=== PATIENT | female | born 2000 | race Caucasian/White ===

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

== ENCOUNTER 2018-03-10 22:44 | Emergency (ER) | payer SELFPAY ==
[~2018-03-10] VITALS: Ht 162.6 cm; Wt 57.3 kg
[2018-03-10 22:49] VITALS: TEMP 98.1
[2018-03-11] MEDS ORDERED: LEXAPRO20 MG PO (00:03)
[2018-03-11] MEDS ORDERED: RECLIPSEN 0.151 TAB PO (00:03)
[2018-03-11] MEDS ORDERED: ABILIFY 10MG TA10 MG PO (00:03)
[2018-03-11 00:05] LABS: BASO % 0.5 % (0.0-2.0); EOS # 0.2 (0.0-0.7); GRAN # 4.6 (1.4-6.5); GRAN % 60.1 % (42.2-75.2); HEMATOCRIT 33.8 % (35.0-45.0); HEMOGLOBIN 11.2 g/dl (12.0-15.0); LYMPH # 2.4 (1.2-3.4); MEAN CELL VOLUME 89 fl (80.0-95.0); MEAN CORPUSCULAR HEMOGLOBIN 30 pg (26.0-32.0); MEAN CORPUSCULAR HGB CONC 33 g/dl (33.0-37.0); MEAN PLATELET VOLUME 11.8 fl (7.4-10.4); MONO # 0.5 (0.1-0.6); MONO % 6.1 % (1.7-9.3); PLATELET COUNT 205 K/mm3 (130-400); RED BLOOD COUNT 3.78 M/mm3 (4.10-5.30); REDCELL DISTRIBUTION WIDTH-CV 13.3 % (11.5-14.5)
[2018-03-11 00:18] LABS: ALBUMIN 4.2 gm/dL (3.5-5.0); BILIRUBIN,TOTAL 0.4 mg/dL (0.0-1.0); CALCIUM 9.2 mg/dL (8.4-10.2); CREATININE, serum 0.81 mg/dL (0.52-1.25); POTASSIUM 3.8 mmol/L (3.4-5.0); TOTAL PROTEIN 7.9 gm/dL (6.4-8.2)
[2018-03-11 01:46] LABS: COLLECTION METHOD CLEAN CATCH
[2018-03-11 01:52] LABS: PH 7 (5-8); SQUAMOUS EPITHELIAL 0-2 /hpf; URINE APPEARANCE Clear; URINE BACTERIA Rare /hpf; URINE BILIRUBIN Negative (NEGATIVE); URINE BLOOD Negative (NEGATIVE); URINE COLOR Straw; URINE GLUCOSE Negative (NEGATIVE); URINE KETONE Negative (NEGATIVE); URINE LEUKOCYTE ESTERASE Negative (NEGATIVE); URINE NITRATE Negative (NEGATIVE); URINE PROTEIN(semi-quant) Negative (NEGATIVE); URINE RBC 0-2 /hpf; URINE UROBILINOGEN Negative (NEGATIVE)
[2018-03-11 02:35] VITALS: BP 116/64; PULSE 72
== END 2018-03-11 02:35 | disposition home or self-care (01) ==
LOC: COL.ER 22:44
PROVIDERS: Emergency Medicine
DX: R11.10 Vomiting, unspecified (principal); Z90.49 Acquired absence of other specified parts of digestive tract; Z32.02 Encounter for pregnancy test, result negative
CPT/HCPCS: J2765; J7120

== ENCOUNTER 2018-03-17 18:21 | Emergency (ER) | payer SELFPAY ==
[~2018-03-17] VITALS: Ht 162.6 cm; Wt 56.2 kg
[~2018-03-17 18:21] MED LIST changes: +ABILIFY 10MG TA10 MG PO; +LEXAPRO20 MG PO; +RECLIPSEN 0.151 TAB PO
[2018-03-17 18:28] VITALS: TEMP 98.2
[2018-03-17 19:01] LABS: BASO # 0.1 (0.0-0.2); BASO % 0.5 % (0.0-2.0); EOS # 0.1 (0.0-0.7); EOS % 0.9 % (0-4.0); GRAN # 6.8 (1.4-6.5); GRAN % 72.8 % (42.2-75.2); HEMATOCRIT 37.5 % (35.0-45.0); HEMOGLOBIN 12.3 g/dl (12.0-15.0); LYMPH # 1.7 (1.2-3.4); LYMPH % 17.8 % (20.0-51.0); MEAN CELL VOLUME 89 fl (80.0-95.0); MEAN CORPUSCULAR HEMOGLOBIN 29 pg (26.0-32.0); MEAN CORPUSCULAR HGB CONC 33 g/dl (33.0-37.0); MEAN PLATELET VOLUME 11.3 fl (7.4-10.4); MONO # 0.7 (0.1-0.6); MONO % 7.7 % (1.7-9.3); PLATELET COUNT 224 K/mm3 (130-400); RED BLOOD COUNT 4.21 M/mm3 (4.10-5.30); REDCELL DISTRIBUTION WIDTH-CV 13.4 % (11.5-14.5)
[2018-03-17 19:11] LABS: ALBUMIN 4.4 gm/dL (3.5-5.0); BILIRUBIN,TOTAL 0.7 mg/dL (0.0-1.0); CALCIUM 9.5 mg/dL (8.4-10.2); CREATININE, serum 0.8 mg/dL (0.52-1.25); POTASSIUM 3.3 mmol/L (3.4-5.0); TOTAL PROTEIN 8.8 gm/dL (6.4-8.2)
[2018-03-17 21:20] VITALS: BP 107/76; PULSE 70
== END 2018-03-17 21:20 | disposition home or self-care (01) ==
LOC: COL.ER 18:21
PROVIDERS: Emergency Medicine
DX: K29.70 Gastritis, unspecified, without bleeding (principal); F50.9 Eating disorder, unspecified; K92.0 Hematemesis; Z90.49 Acquired absence of other specified parts of digestive tract; Z90.89 Acquired absence of other organs; Z98.890 Other specified postprocedural states
CPT/HCPCS: C9113; J1885; J2405; J7030

== ENCOUNTER 2018-04-17 22:14 | Emergency (ER) | payer SELFPAY ==
[~2018-04-17] VITALS: Ht 162.6 cm; Wt 57.7 kg
[2018-04-17 22:16] VITALS: BP 137/73; TEMP 99.7
[2018-04-17] MEDS ORDERED: ZYRTEC 10MG10 MG (22:29)
[2018-04-18 01:10] VITALS: PULSE 81
[2018-04-18] MEDS ORDERED: PHENERGAN25 MG RC (19:15)
[2018-04-18] MEDS ORDERED: COMPAZINE 110 MG/TAB PO (19:15)
== END 2018-04-18 01:10 | disposition home or self-care (01) ==
LOC: COL.ER 22:14
DX: G43.909 Migraine, unspecified, not intractable, without status migrainosus (principal); Z90.49 Acquired absence of other specified parts of digestive tract; Z90.89 Acquired absence of other organs; Z98.890 Other specified postprocedural states
CPT/HCPCS: J1100; J1200; J1885; J2765

== ENCOUNTER 2018-04-18 15:32 | Emergency (ER) | payer SELFPAY ==
[~2018-04-18] VITALS: Ht 162.6 cm; Wt 59.1 kg
[~2018-04-18 15:32] MED LIST changes: +ZYRTEC 10MG10 MG
[2018-04-18 15:41] VITALS: TEMP 98.2
[2018-04-18] MEDS ORDERED: PHENERGAN25 MG RC (19:15)
[2018-04-18] MEDS ORDERED: COMPAZINE 110 MG/TAB PO (19:15)
[2018-04-18 19:21] VITALS: BP 108/78; PULSE 74
== END 2018-04-18 19:48 | disposition home or self-care (01) ==
LOC: COL.ER 15:32
DX: G43.909 Migraine, unspecified, not intractable, without status migrainosus (principal); F41.9 Anxiety disorder, unspecified; F31.9 Bipolar disorder, unspecified; R11.2 Nausea with vomiting, unspecified; F50.9 Eating disorder, unspecified; Z90.49 Acquired absence of other specified parts of digestive tract; Z90.89 Acquired absence of other organs
CPT/HCPCS: J1200; J1630; J1885; J3475; J7030

== ENCOUNTER 2018-04-29 19:54 | Emergency (ER) | payer SELFPAY ==
[~2018-04-29] VITALS: Ht 162.6 cm; Wt 59.1 kg
[~2018-04-29 19:54] MED LIST changes: +COMPAZINE 110 MG/TAB PO; +PHENERGAN25 MG RC
[2018-04-29 19:58] VITALS: TEMP 98.3
[2018-04-29 21:01] LABS: BASO # 0.1 (0.0-0.2); BASO % 0.7 % (0.0-2.0); EOS # 0.2 (0.0-0.7); EOS % 2.7 % (0-4.0); GRAN # 4.1 (1.4-6.5); HEMATOCRIT 37.5 % (35.0-45.0); HEMOGLOBIN 12.3 g/dl (12.0-15.0); MEAN CELL VOLUME 90 fl (80.0-95.0); MEAN CORPUSCULAR HEMOGLOBIN 30 pg (26.0-32.0); MEAN CORPUSCULAR HGB CONC 33 g/dl (33.0-37.0); MONO # 0.7 (0.1-0.6); MONO % 9.3 % (1.7-9.3); PLATELET COUNT 253 K/mm3 (130-400); RED BLOOD COUNT 4.16 M/mm3 (4.10-5.30); REDCELL DISTRIBUTION WIDTH-CV 13.5 % (11.5-14.5)
[2018-04-29 21:09] LABS: ALANINE AMINOTRANSFERASE 22 U/L (9-52); ALBUMIN 4.3 gm/dL (3.5-5.0); ALKALINE PHOSPHATASE 61 U/L (50-136); ANION GAP 13 mmol/L (7-16); AST,SGOT 22 U/L (15-37); BILIRUBIN,TOTAL 0.2 mg/dL (0.0-1.0); BLOOD UREA NITROGEN 18 mg/dL (7-17); CALCIUM 9.1 mg/dL (8.4-10.2); CARBON DIOXIDE 23 mmol/L (22-30); CHLORIDE 102 mmol/L (98-107); CREATININE, serum 0.63 mg/dL (0.52-1.25); GLUCOSE 104 mg/dL (74-106); MAGNESIUM 1.8 mg/dL (1.6-2.3); POTASSIUM 3.7 mmol/L (3.4-5.0); SODIUM 138 mmol/L (137-145); TOTAL PROTEIN 7.7 gm/dL (6.4-8.2)
[2018-04-29 21:12] LABS: ACETAMINOPHEN < 10 ug/mL (10-30); SALICYLATE < 1.0 mg/dL
[2018-04-29] MEDS ORDERED: ATARAX 25MG25 MG/TAB PO (22:03)
[2018-04-29 22:08] VITALS: BP 140/88; PULSE 106
== END 2018-04-29 22:32 | disposition home or self-care (01) ==
LOC: COL.ER 19:54
PROVIDERS: Emergency Medicine
DX: T43.592A Poisoning by other antipsychotics and neuroleptics, intentional self-harm, initial encounter (principal); F41.9 Anxiety disorder, unspecified; F31.9 Bipolar disorder, unspecified; F50.9 Eating disorder, unspecified; G43.909 Migraine, unspecified, not intractable, without status migrainosus; Z91.5 Personal history of self-harm

== ENCOUNTER 2018-05-05 16:52 | Emergency (ER) | payer SELFPAY ==
[~2018-05-05] VITALS: Ht 162.6 cm; Wt 59.1 kg
[~2018-05-05 16:52] MED LIST changes: +ATARAX 25MG25 MG/TAB PO
[2018-05-05 16:56] VITALS: TEMP 98.1
[2018-05-05 17:34] LABS: BASO # 0.1 (0.0-0.2); BASO % 0.6 % (0.0-2.0); EOS # 0.2 (0.0-0.7); GRAN # 5.1 (1.4-6.5); GRAN % 62.9 % (42.2-75.2); HEMATOCRIT 37.6 % (35.0-45.0); HEMOGLOBIN 12.5 g/dl (12.0-15.0); LYMPH # 2.2 (1.2-3.4); LYMPH % 27.5 % (20.0-51.0); MEAN CELL VOLUME 89 fl (80.0-95.0); MEAN CORPUSCULAR HEMOGLOBIN 30 pg (26.0-32.0); MEAN CORPUSCULAR HGB CONC 33 g/dl (33.0-37.0); MEAN PLATELET VOLUME 11.1 fl (7.4-10.4); MONO # 0.6 (0.1-0.6); MONO % 6.8 % (1.7-9.3); PLATELET COUNT 262 K/mm3 (130-400); RED BLOOD COUNT 4.24 M/mm3 (4.10-5.30); REDCELL DISTRIBUTION WIDTH-CV 13.5 % (11.5-14.5)
[2018-05-05 17:44] LABS: ALANINE AMINOTRANSFERASE 27 U/L (9-52); ALBUMIN 4.6 gm/dL (3.5-5.0); ALKALINE PHOSPHATASE 55 U/L (50-136); ANION GAP 14 mmol/L (7-16); AST,SGOT 25 U/L (15-37); BILIRUBIN,TOTAL 0.4 mg/dL (0.0-1.0); BLOOD UREA NITROGEN 17 mg/dL (7-17); CALCIUM 9.6 mg/dL (8.4-10.2); CARBON DIOXIDE 24 mmol/L (22-30); CHLORIDE 102 mmol/L (98-107); CREATININE, serum 0.82 mg/dL (0.52-1.25); GLUCOSE 93 mg/dL (74-106); POTASSIUM 3.8 mmol/L (3.4-5.0); SODIUM 139 mmol/L (137-145); TOTAL PROTEIN 8.5 gm/dL (6.4-8.2)
[2018-05-05 17:46] LABS: ACETAMINOPHEN < 10 ug/mL (10-30); ALCOHOL(ethanol),MEDICAL < 10 mg/dL; SALICYLATE < 1.0 mg/dL
[2018-05-05 18:53] LABS: COLLECTION METHOD CLEAN CATCH
[2018-05-05 19:03] LABS: PH 6 (5-8); SQUAMOUS EPITHELIAL 0-2 /hpf; URINE APPEARANCE Clear; URINE BACTERIA None Seen /hpf; URINE BILIRUBIN Negative (NEGATIVE); URINE BLOOD Negative (NEGATIVE); URINE COLOR Straw; URINE GLUCOSE Negative (NEGATIVE); URINE KETONE Negative (NEGATIVE); URINE LEUKOCYTE ESTERASE Negative (NEGATIVE); URINE NITRATE Negative (NEGATIVE); URINE PROTEIN(semi-quant) Negative (NEGATIVE); URINE RBC 0-2 /hpf; URINE UROBILINOGEN Negative (NEGATIVE)
[2018-05-05 19:18] LABS: TRICYCLIC ANTIDEPRESS URINE NEGATIVE
[2018-05-05 23:20] VITALS: BP 122/72; PULSE 108
== END 2018-05-05 23:29 | disposition home or self-care (01) ==
LOC: COL.ER 16:52
PROVIDERS: Emergency Medicine
DX: T43.222A Poisoning by selective serotonin reuptake inhibitors, intentional self-harm, initial encounter (principal); T43.592A Poisoning by other antipsychotics and neuroleptics, intentional self-harm, initial encounter; F31.9 Bipolar disorder, unspecified; F41.9 Anxiety disorder, unspecified; G43.909 Migraine, unspecified, not intractable, without status migrainosus
CPT/HCPCS: J2405; J7030

== ENCOUNTER 2019-02-04 21:47 | Emergency (ER) | payer SELFPAY ==
[~2019-02-04] VITALS: Ht 162.6 cm; Wt 63.6 kg
[2019-02-04 22:05] VITALS: BP 117/67; TEMP 99.2
[2019-02-05 00:24] LABS: BASO % 0.5 % (0.0-2.0); EOS # 0.2 (0.0-0.7); EOS % 2.6 % (0-4.0); GRAN # 4.5 (1.4-6.5); GRAN % 57.3 % (42.2-75.2); HEMATOCRIT 38.1 % (35.0-45.0); HEMOGLOBIN 12.6 g/dl (12.0-15.0); LYMPH # 2.5 (1.2-3.4); LYMPH % 32.5 % (20.0-51.0); MEAN CELL VOLUME 88 fl (80.0-95.0); MEAN CORPUSCULAR HEMOGLOBIN 29 pg (26.0-32.0); MEAN CORPUSCULAR HGB CONC 33 g/dl (33.0-37.0); MEAN PLATELET VOLUME 11.1 fl (7.4-10.4); MONO # 0.5 (0.1-0.6); MONO % 6.8 % (1.7-9.3); PLATELET COUNT 223 K/mm3 (130-400); RED BLOOD COUNT 4.31 M/mm3 (4.10-5.30)
[2019-02-05 00:37] LABS: ALANINE AMINOTRANSFERASE 19 U/L (9-52); ALBUMIN 4.5 gm/dL (3.5-5.0); ALKALINE PHOSPHATASE 48 U/L (50-136); ANION GAP 11 mmol/L (7-16); AST,SGOT 24 U/L (15-37); BILIRUBIN,TOTAL 0.4 mg/dL (0.0-1.0); BLOOD UREA NITROGEN 15 mg/dL (7-17); CARBON DIOXIDE 25 mmol/L (22-30); CHLORIDE 104 mmol/L (98-107); GLUCOSE 95 mg/dL (74-106); LIPASE 136 U/L (23-300); POTASSIUM 3.8 mmol/L (3.4-5.0); SODIUM 140 mmol/L (137-145); TOTAL PROTEIN 8.2 gm/dL (6.4-8.2)
[2019-02-05 00:40] LABS: C-REACTIVE PROTEIN < 0.5 mg/dL (0.0-0.9)
[2019-02-05 01:12] LABS: COLLECTION METHOD CLEAN CATCH
[2019-02-05 01:29] LABS: MUCOUS Present /lpf; PH 6 (5-8); SQUAMOUS EPITHELIAL 0-2 /hpf; URINE APPEARANCE Clear; URINE BACTERIA None Seen /hpf; URINE BILIRUBIN Negative (NEGATIVE); URINE BLOOD 1+ (NEGATIVE); URINE COLOR Yellow; URINE GLUCOSE Negative (NEGATIVE); URINE KETONE Negative (NEGATIVE); URINE LEUKOCYTE ESTERASE Trace (NEGATIVE); URINE NITRATE Negative (NEGATIVE); URINE PROTEIN(semi-quant) Negative (NEGATIVE); URINE RBC 0-2 /hpf; URINE UROBILINOGEN Negative (NEGATIVE)
[2019-02-05] MEDS ORDERED: CEPHALEXIN500 M1 PO (01:34)
[2019-02-05 02:00] VITALS: PULSE 73
== END 2019-02-05 02:00 | disposition home or self-care (01) ==
LOC: COL.ER 21:47
PROVIDERS: Emergency Medicine
DX: R10.12 Left upper quadrant pain (principal); F31.9 Bipolar disorder, unspecified; Z90.89 Acquired absence of other organs; Z90.49 Acquired absence of other specified parts of digestive tract
CPT/HCPCS: J1885; J2270; J2405; J7030

== ENCOUNTER 2019-02-08 01:20 | Emergency (ER) | payer SELFPAY ==
[~2019-02-08] VITALS: Ht 162.6 cm; Wt 63.6 kg
[~2019-02-08 01:20] MED LIST changes: +CEPHALEXIN500 M1 PO
[2019-02-08 01:27] VITALS: BP 102/67; TEMP 98.9
[2019-02-08 02:31] LABS: COLLECTION METHOD CLEAN CATCH
[2019-02-08 02:39] LABS: MUCOUS Present /lpf; PH 6 (5-8); SQUAMOUS EPITHELIAL 0-2 /hpf; URINE APPEARANCE Clear; URINE BACTERIA Rare /hpf; URINE BILIRUBIN Negative (NEGATIVE); URINE BLOOD 1+ (NEGATIVE); URINE COLOR Yellow; URINE GLUCOSE Negative (NEGATIVE); URINE KETONE Negative (NEGATIVE); URINE LEUKOCYTE ESTERASE 3+ (NEGATIVE); URINE NITRATE Negative (NEGATIVE); URINE PROTEIN(semi-quant) Negative (NEGATIVE); URINE UROBILINOGEN Negative (NEGATIVE)
[2019-02-08] MEDS ORDERED: CEPHALEXIN500 M1 PO (02:56)
[2019-02-08 03:44] VITALS: PULSE 67
== END 2019-02-08 03:44 | disposition home or self-care (01) ==
LOC: COL.ER 01:20
PROVIDERS: Physician Assistant
DX: N30.90 Cystitis, unspecified without hematuria (principal); F31.9 Bipolar disorder, unspecified; Z90.89 Acquired absence of other organs; Z90.49 Acquired absence of other specified parts of digestive tract; Z88.8 Allergy status to other drugs, medicaments and biological substances
CPT/HCPCS: J0696; J1885

== ENCOUNTER 2019-05-29 14:28 | Emergency (ER) | payer SELFPAY ==
[~2019-05-29] VITALS: Ht 162.6 cm; Wt 61.4 kg
[2019-05-29 14:30] VITALS: BP 116/73; TEMP 99.5
[2019-05-29] MEDS ORDERED: LILETTA52 MG IY (14:42)
[2019-05-29] MEDS ORDERED: LAMICTAL 100MG100 MG PO (14:43)
[2019-05-29 15:38] VITALS: PULSE 95
== END 2019-05-29 15:39 | disposition home or self-care (01) ==
LOC: COL.ER 14:28
DX: B34.9 Viral infection, unspecified (principal); H10.9 Unspecified conjunctivitis

== ENCOUNTER 2019-06-05 03:45 | Emergency (ER) | payer SELFPAY ==
[~2019-06-05] VITALS: Ht 162.6 cm; Wt 61.4 kg
[2019-06-05 05:15] VITALS: BP 108/58; PULSE 100; TEMP 98.2
[2019-06-05 06:25] LABS: COLLECTION METHOD CLEAN CATCH
[2019-06-05 06:37] LABS: MUCOUS Present /lpf; PH 7 (5-8); URINE APPEARANCE Clear; URINE BACTERIA None Seen /hpf; URINE BILIRUBIN Negative (NEGATIVE); URINE BLOOD 3+ (NEGATIVE); URINE COLOR Yellow; URINE GLUCOSE Negative (NEGATIVE); URINE KETONE Negative (NEGATIVE); URINE LEUKOCYTE ESTERASE Trace (NEGATIVE); URINE NITRATE Negative (NEGATIVE); URINE PROTEIN(semi-quant) Negative (NEGATIVE); URINE RBC >50 /hpf; URINE UROBILINOGEN Negative (NEGATIVE)
[2019-06-05 11:53] LABS: BASO % 0.6 % (0.0-2.0); EOS # 0.1 (0.0-0.7); EOS % 1.6 % (0-4.0); GRAN # 3.3 (1.4-6.5); GRAN % 52.9 % (42.2-75.2); HEMATOCRIT 39.8 % (35.0-45.0); HEMOGLOBIN 13.2 g/dl (12.0-15.0); LYMPH # 2.2 (1.2-3.4); MEAN CELL VOLUME 90 fl (80.0-95.0); MEAN CORPUSCULAR HEMOGLOBIN 30 pg (26.0-32.0); MEAN CORPUSCULAR HGB CONC 33 g/dl (33.0-37.0); MEAN PLATELET VOLUME 11.2 fl (7.4-10.4); MONO # 0.5 (0.1-0.6); MONO % 8.6 % (1.7-9.3); PLATELET COUNT 289 K/mm3 (130-400); RED BLOOD COUNT 4.41 M/mm3 (4.10-5.30); REDCELL DISTRIBUTION WIDTH-CV 12.4 % (11.5-14.5)
[2019-06-05 12:04] LABS: ALBUMIN 4.7 gm/dL (3.5-5.0); BILIRUBIN,TOTAL 0.3 mg/dL (0.0-1.0); CALCIUM 9.3 mg/dL (8.4-10.2); CREATININE, serum 0.84 (0.52-1.25); TOTAL PROTEIN 8.4 gm/dL (6.4-8.2)
[2019-06-05 12:25] LABS: HIV 1/2 Antibodies Non-Reactive; HIV-1p24 Antigen Non-Reactive
== END 2019-06-05 12:16 | disposition home or self-care (01) ==
LOC: COL.ER 03:45
PROVIDERS: Emergency Medicine
DX: T74.21XA Adult sexual abuse, confirmed, initial encounter (principal)
CPT/HCPCS: J0696

== ENCOUNTER → 2019-06-05 | Outpatient (REF) ==
[~2019-06-05] MED LIST changes: +LAMICTAL 100MG100 MG PO; +LILETTA52 MG IY
== END ==
LOC: COL.ER 05:05
DX: T74.21XA Adult sexual abuse, confirmed, initial encounter (principal)

== ENCOUNTER 2019-08-30 21:03 | Emergency (ER) | payer SELFPAY ==
[~2019-08-30] VITALS: Ht 162.6 cm; Wt 59.1 kg
[2019-08-30 21:08] VITALS: TEMP 98.3
[2019-08-30] MEDS ORDERED: ZOLOFT 50MG50 MG PO (21:12)
[2019-08-30 22:37] LABS: BASO # 0.1 (0.0-0.2); BASO % 0.6 % (0.0-2.0); EOS # 0.1 (0.0-0.7); EOS % 1.5 % (0-4.0); GRAN # 4.8 (1.4-6.5); GRAN % 60.7 % (42.2-75.2); HEMATOCRIT 40.7 % (37.0-47.0); HEMOGLOBIN 13.4 g/dl (12.5-16.0); LYMPH # 2.3 (1.2-3.4); MEAN CELL VOLUME 92 fl (80.0-100.0); MEAN CORPUSCULAR HEMOGLOBIN 30 pg (27.0-31.0); MEAN CORPUSCULAR HGB CONC 33 g/dl (33.0-37.0); MONO # 0.6 (0.1-0.6); MONO % 7.9 % (1.7-9.3); PLATELET COUNT 295 K/mm3 (130-400); RED BLOOD COUNT 4.44 M/mm3 (4.10-5.30); REDCELL DISTRIBUTION WIDTH-CV 13.2 % (11.5-14.5)
[2019-08-30 22:49] LABS: ALBUMIN 4.9 gm/dL (3.5-5.0); BILIRUBIN,TOTAL 0.6 mg/dL (0.0-1.0); CALCIUM 9.8 mg/dL (8.4-10.2); CREATININE, serum 0.61 (0.52-1.25); MAGNESIUM 2.1 mg/dL (1.6-2.3); PHOSPHOROUS 3.4 mg/dL (2.5-4.5); TOTAL PROTEIN 8.3 gm/dL (6.4-8.2)
[2019-08-30 23:12] LABS: COLLECTION METHOD CLEAN CATCH
[2019-08-30 23:33] LABS: MUCOUS Present /lpf; PH 7 (5-8); URINE APPEARANCE Hazy; URINE BACTERIA None Seen /hpf; URINE BILIRUBIN Negative (NEGATIVE); URINE BLOOD 3+ (NEGATIVE); URINE COLOR Yellow; URINE GLUCOSE Negative (NEGATIVE); URINE KETONE Negative (NEGATIVE); URINE LEUKOCYTE ESTERASE 2+ (NEGATIVE); URINE NITRATE Negative (NEGATIVE); URINE PROTEIN(semi-quant) Negative (NEGATIVE); URINE RBC >50 /hpf; URINE UROBILINOGEN Negative (NEGATIVE)
[2019-08-31 00:15] VITALS: BP 114/70; PULSE 73
[2019-08-31] MEDS ORDERED: CEFTIN 250250 MG/TAB PO (00:33)
== END 2019-08-31 00:53 | disposition home or self-care (01) ==
LOC: COL.ER 21:03
PROVIDERS: Nurse Practitioner
DX: N39.0 Urinary tract infection, site not specified (principal); F31.9 Bipolar disorder, unspecified; Z90.49 Acquired absence of other specified parts of digestive tract
CPT/HCPCS: J2060; J7030

== ENCOUNTER 2019-09-18 20:55 | Emergency (ER) | payer SELFPAY ==
[~2019-09-18] VITALS: Ht 162.6 cm; Wt 59.1 kg
[~2019-09-18 20:55] MED LIST changes: +CEFTIN 250250 MG/TAB PO; +ZOLOFT 50MG50 MG PO
[2019-09-18 21:07] VITALS: BP 125/68; TEMP 98.3
[2019-09-18] MEDS ORDERED: NORCO 325 MG-51 TAB PO (21:40)
[2019-09-18] MEDS ORDERED: FLEXERIL 1010 MG/TAB PO (21:40)
[2019-09-18 21:44] LABS: COLLECTION METHOD CLEAN CATCH
[2019-09-18 21:50] LABS: PH 7 (5-8); URINE APPEARANCE Clear; URINE BACTERIA Rare /hpf; URINE BILIRUBIN Negative (NEGATIVE); URINE BLOOD Negative (NEGATIVE); URINE COLOR Straw; URINE GLUCOSE Negative (NEGATIVE); URINE KETONE Negative (NEGATIVE); URINE LEUKOCYTE ESTERASE Negative (NEGATIVE); URINE NITRATE Negative (NEGATIVE); URINE PROTEIN(semi-quant) Negative (NEGATIVE); URINE RBC 0-2 /hpf; URINE UROBILINOGEN Negative (NEGATIVE)
[2019-09-18 22:35] VITALS: PULSE 98
== END 2019-09-18 22:35 | disposition home or self-care (01) ==
LOC: COL.ER 20:55
PROVIDERS: Emergency Medicine
DX: M54.5 Low back pain (principal)
CPT/HCPCS: J1170

== ENCOUNTER 2019-10-21 16:41 | Emergency (ER) | payer SELFPAY ==
[~2019-10-21] VITALS: Ht 162.6 cm; Wt 59.1 kg
[~2019-10-21 16:41] MED LIST changes: +FLEXERIL 1010 MG/TAB PO; +NORCO 325 MG-51 TAB PO
[2019-10-21 17:24] VITALS: BP 125/69; TEMP 98.7
[2019-10-21 19:50] VITALS: PULSE 81
== END 2019-10-21 19:58 | disposition home or self-care (01) ==
LOC: COL.ER 16:41
DX: R51 Headache (principal); R11.2 Nausea with vomiting, unspecified; F31.9 Bipolar disorder, unspecified; Z90.89 Acquired absence of other organs
CPT/HCPCS: J1885

== ENCOUNTER 2019-12-26 21:33 | Emergency (ER) | payer SELFPAY ==
[~2019-12-26] VITALS: Ht 162.6 cm; Wt 61.4 kg
[2019-12-26 21:36] VITALS: BP 132/76; TEMP 97.6
[2019-12-26 22:14] VITALS: PULSE 90
== END 2019-12-26 22:15 | disposition home or self-care (01) ==
LOC: COL.ER 21:33
DX: T23.121A Burn of first degree of single right finger (nail) except thumb, initial encounter (principal); T23.171A Burn of first degree of right wrist, initial encounter; T31.0 Burns involving less than 10% of body surface; X12.XXXA Contact with other hot fluids, initial encounter; Y93.G3 Activity, cooking and baking; Y92.002 Bathroom of unspecified non-institutional (private) residence as the place of occurrence of the external cause

== ENCOUNTER 2020-02-13 22:35 | Emergency (ER) | payer SELFPAY ==
[~2020-02-13] VITALS: Ht 162.6 cm; Wt 61.4 kg
[2020-02-13 22:41] VITALS: TEMP 98.6
[2020-02-13] MEDS ORDERED: RISPERDAL 0.5M0.5 MG PO (22:51)
[2020-02-13] MEDS ORDERED: KEPPRA1000 MG PO (22:51)
[2020-02-13 23:04] LABS: BASO % 0.4 % (0.0-2.0); EOS # 0.1 (0.0-0.7); GRAN # 6.3 (1.4-6.5); GRAN % 68.6 % (42.2-75.2); HEMATOCRIT 39.4 % (37.0-47.0); LYMPH # 2.1 (1.2-3.4); LYMPH % 23.2 % (20.0-51.0); MEAN CELL VOLUME 93 fl (80.0-100.0); MEAN CORPUSCULAR HEMOGLOBIN 31 pg (27.0-31.0); MEAN CORPUSCULAR HGB CONC 33 g/dl (33.0-37.0); MEAN PLATELET VOLUME 11.5 fl (7.4-10.4); MONO # 0.6 (0.1-0.6); MONO % 6.4 % (1.7-9.3); PLATELET COUNT 221 K/mm3 (130-400); RED BLOOD COUNT 4.23 M/mm3 (4.10-5.30)
[2020-02-13 23:09] VITALS: BP 124/73; PULSE 93
[2020-02-13 23:37] LABS: ALANINE AMINOTRANSFERASE 16 U/L (4-34); ALBUMIN 4.7 gm/dL (3.5-5.0); ALKALINE PHOSPHATASE 65 U/L (50-136); ANION GAP 11 mmol/L (7-16); AST,SGOT 24 U/L (15-37); BILIRUBIN,TOTAL 0.7 mg/dL (0.0-1.0); BLOOD UREA NITROGEN 19 mg/dL (7-17); CALCIUM 9.6 mg/dL (8.4-10.2); CARBON DIOXIDE 24 mmol/L (22-30); CHLORIDE 103 mmol/L (98-107); CREATININE, serum 0.71 (0.52-1.25); GLUCOSE 105 mg/dL (74-106); POTASSIUM 3.8 mmol/L (3.4-5.0); SODIUM 138 mmol/L (137-145); TOTAL PROTEIN 8.1 gm/dL (6.4-8.2)
[2020-02-13 23:45] LABS: C-REACTIVE PROTEIN < 0.5 mg/dL (0.0-0.9)
[2020-02-13 23:46] LABS: TROPONIN-I < 0.012 ng/mL (0.000-0.035)
== END 2020-02-14 00:41 | disposition home or self-care (01) ==
LOC: COL.ER 22:35
PROVIDERS: Emergency Medicine
DX: R55 Syncope and collapse (principal); R00.2 Palpitations
CPT/HCPCS: J7030

== ENCOUNTER 2020-04-15 14:47 | Emergency (ER) | payer SELFPAY ==
[~2020-04-15] VITALS: Ht 162.6 cm; Wt 61.4 kg
[~2020-04-15 14:47] MED LIST changes: +KEPPRA1000 MG PO; +RISPERDAL 0.5M0.5 MG PO
[2020-04-15 14:50] VITALS: TEMP 98.4
[2020-04-15 15:32] LABS: BASO % 0.4 % (0.0-2.0); EOS # 0.1 (0.0-0.7); EOS % 1.6 % (0-4.0); GRAN # 4.5 (1.4-6.5); GRAN % 61.7 % (42.2-75.2); HEMATOCRIT 39.5 % (37.0-47.0); HEMOGLOBIN 13.3 g/dl (12.5-16.0); LYMPH # 2.2 (1.2-3.4); LYMPH % 29.5 % (20.0-51.0); MEAN CELL VOLUME 93 fl (80.0-100.0); MEAN CORPUSCULAR HEMOGLOBIN 31 pg (27.0-31.0); MEAN CORPUSCULAR HGB CONC 34 g/dl (33.0-37.0); MEAN PLATELET VOLUME 11.3 fl (7.4-10.4); MONO # 0.5 (0.1-0.6); MONO % 6.5 % (1.7-9.3); PLATELET COUNT 213 K/mm3 (130-400); RED BLOOD COUNT 4.27 M/mm3 (4.10-5.30); REDCELL DISTRIBUTION WIDTH-CV 11.9 % (11.5-14.5)
[2020-04-15 16:11] LABS: ALANINE AMINOTRANSFERASE 13 U/L (4-34); ALBUMIN 4.6 gm/dL (3.5-5.0); ALKALINE PHOSPHATASE 61 U/L (50-136); ANION GAP 8 mmol/L (7-16); AST,SGOT 35 U/L (15-37); BILIRUBIN,TOTAL 1.1 mg/dL (0.0-1.0); BLOOD UREA NITROGEN 12 mg/dL (7-17); CALCIUM 9.6 mg/dL (8.4-10.2); CARBON DIOXIDE 25 mmol/L (22-30); CHLORIDE 104 mmol/L (98-107); GLUCOSE 95 mg/dL (74-106); POTASSIUM 4.1 mmol/L (3.4-5.0); SODIUM 137 mmol/L (137-145)
[2020-04-15 16:15] LABS: C-REACTIVE PROTEIN < 0.5 mg/dL (0.0-0.9)
[2020-04-15 16:43] VITALS: BP 101/62; PULSE 74
== END 2020-04-15 16:43 | disposition home or self-care (01) ==
LOC: COL.ER 14:47
PROVIDERS: Emergency Medicine
DX: G43.909 Migraine, unspecified, not intractable, without status migrainosus (principal); G40.909 Epilepsy, unspecified, not intractable, without status epilepticus
CPT/HCPCS: J1200; J1790; J1885; J3010; J7030

== ENCOUNTER 2020-04-27 21:25 | Emergency (ER) | payer SELFPAY ==
[~2020-04-27] VITALS: Ht 162.6 cm; Wt 68.2 kg
[2020-04-27 21:34] VITALS: TEMP 99.5
[2020-04-27 22:28] LABS: BASO % 0.5 % (0.0-2.0); EOS # 0.1 (0.0-0.7); EOS % 2.1 % (0-4.0); GRAN # 3.2 (1.4-6.5); GRAN % 51.8 % (42.2-75.2); HEMOGLOBIN 12.9 g/dl (12.5-16.0); LYMPH # 2.1 (1.2-3.4); LYMPH % 34.4 % (20.0-51.0); MEAN CELL VOLUME 92 fl (80.0-100.0); MEAN CORPUSCULAR HEMOGLOBIN 31 pg (27.0-31.0); MEAN CORPUSCULAR HGB CONC 34 g/dl (33.0-37.0); MEAN PLATELET VOLUME 11.6 fl (7.4-10.4); MONO # 0.7 (0.1-0.6); MONO % 10.9 % (1.7-9.3); PLATELET COUNT 200 K/mm3 (130-400); RED BLOOD COUNT 4.13 M/mm3 (4.10-5.30); REDCELL DISTRIBUTION WIDTH-CV 11.9 % (11.5-14.5)
[2020-04-27 22:30] LABS: ACETAMINOPHEN 27 ug/mL (10-30); ALANINE AMINOTRANSFERASE 14 U/L (4-34); ALBUMIN 4.5 gm/dL (3.5-5.0); ALKALINE PHOSPHATASE 54 U/L (50-136); ANION GAP 9 mmol/L (7-16); AST,SGOT 21 U/L (15-37); BILIRUBIN,TOTAL 0.4 mg/dL (0.0-1.0); BLOOD UREA NITROGEN 12 mg/dL (7-17); CALCIUM 9.6 mg/dL (8.4-10.2); CARBON DIOXIDE 24 mmol/L (22-30); CHLORIDE 104 mmol/L (98-107); CREATININE, serum 0.74 (0.52-1.25); GLUCOSE 96 mg/dL (74-106); SODIUM 137 mmol/L (137-145); TOTAL PROTEIN 7.6 gm/dL (6.4-8.2)
[2020-04-27 22:33] LABS: ALCOHOL(ethanol),MEDICAL < 10 mg/dL; SALICYLATE < 1.0 mg/dL
[2020-04-28 06:09] LABS: COLLECTION METHOD CLEAN CATCH
[2020-04-28 06:15] LABS: MUCOUS Present /lpf; PH 7 (5-8); URINE APPEARANCE Clear; URINE BACTERIA None Seen /hpf; URINE BILIRUBIN Negative (NEGATIVE); URINE BLOOD Negative (NEGATIVE); URINE COLOR Straw; URINE GLUCOSE Negative (NEGATIVE); URINE KETONE Negative (NEGATIVE); URINE LEUKOCYTE ESTERASE Negative (NEGATIVE); URINE NITRATE Negative (NEGATIVE); URINE PROTEIN(semi-quant) Negative (NEGATIVE); URINE RBC 0-2 /hpf; URINE UROBILINOGEN Negative (NEGATIVE)
[2020-04-28 06:24] LABS: TRICYCLIC ANTIDEPRESS URINE POSITIVE
[2020-04-28 17:11] VITALS: BP 110/74; PULSE 110
== END 2020-04-28 17:40 | disposition home or self-care (01) ==
LOC: COL.ER 21:25
PROVIDERS: Emergency Medicine
DX: T42.4X2A Poisoning by benzodiazepines, intentional self-harm, initial encounter (principal); T48.1X2A Poisoning by skeletal muscle relaxants [neuromuscular blocking agents], intentional self-harm, initial encounter; T39.1X2A Poisoning by 4-Aminophenol derivatives, intentional self-harm, initial encounter; F32.9 Major depressive disorder, single episode, unspecified; F10.10 Alcohol abuse, uncomplicated; Z88.8 Allergy status to other drugs, medicaments and biological substances; Z32.02 Encounter for pregnancy test, result negative
CPT/HCPCS: J7030; J7120

== ENCOUNTER 2020-05-17 18:29 | Emergency (ER) | payer SELFPAY ==
[~2020-05-17] VITALS: Ht 162.6 cm; Wt 63.6 kg
[2020-05-17 19:29] LABS: BILIRUBIN,TOTAL 1.3 mg/dL (0.0-1.0); CALCIUM 9.8 mg/dL (8.4-10.2); CREATININE, serum 0.73 (0.52-1.25); POTASSIUM 4.2 mmol/L (3.4-5.0); TOTAL PROTEIN 9.3 gm/dL (6.4-8.2)
[2020-05-17 19:32] LABS: BASO % 0.4 % (0.0-2.0); EOS % 0.2 % (0-4.0); GRAN # 7.1 (1.4-6.5); GRAN % 62.6 % (42.2-75.2); HEMATOCRIT 42.2 % (37.0-47.0); HEMOGLOBIN 13.9 g/dl (12.5-16.0); LYMPH # 3.1 (1.2-3.4); LYMPH % 27.1 % (20.0-51.0); MEAN CELL VOLUME 92 fl (80.0-100.0); MEAN CORPUSCULAR HEMOGLOBIN 30 pg (27.0-31.0); MEAN CORPUSCULAR HGB CONC 33 g/dl (33.0-37.0); MEAN PLATELET VOLUME 11.1 fl (7.4-10.4); MONO # 1.1 (0.1-0.6); MONO % 9.3 % (1.7-9.3); PLATELET COUNT 230 K/mm3 (130-400); RED BLOOD COUNT 4.57 M/mm3 (4.10-5.30)
[2020-05-17 19:36] LABS: MONOSCREEN POSITIVE
[2020-05-17 19:41] LABS: STREP SCREEN NEGATIVE
[2020-05-17] MEDS ORDERED: CEPHALEXIN500 M1 PO (20:08)
[2020-05-17 20:46] VITALS: TEMP 98.7
[2020-05-17 20:46] LABS: COLLECTION METHOD CLEAN CATCH
[2020-05-17 20:58] LABS: MUCOUS Present /lpf; PH 5 (5-8); URINE APPEARANCE Cloudy; URINE BACTERIA Rare /hpf; URINE BILIRUBIN Positive (NEGATIVE); URINE BLOOD Negative (NEGATIVE); URINE COLOR Amber; URINE GLUCOSE Negative (NEGATIVE); URINE KETONE 2+ (NEGATIVE); URINE LEUKOCYTE ESTERASE Negative (NEGATIVE); URINE NITRATE Negative (NEGATIVE); URINE PROTEIN(semi-quant) 2+ (NEGATIVE); URINE RBC 0-2 /hpf; URINE UROBILINOGEN >=4.0 mg/dL (NEGATIVE)
[2020-05-17 21:50] VITALS: BP 117/75; PULSE 99
== END 2020-05-17 21:50 | disposition home or self-care (01) ==
LOC: COL.ER 18:29
PROVIDERS: Emergency Medicine
DX: B27.90 Infectious mononucleosis, unspecified without complication (principal); G40.909 Epilepsy, unspecified, not intractable, without status epilepticus
CPT/HCPCS: J1100; J7030

== ENCOUNTER 2020-08-22 | Emergency (ER) | payer SELFPAY ==
[~2020-08-22] VITALS: Ht 162.6 cm; Wt 63.6 kg
[2020-08-22 00:23] VITALS: TEMP 99.1
[2020-08-22 01:01] LABS: COLLECTION METHOD CLEAN CATCH
[2020-08-22 01:08] LABS: MUCOUS Present /lpf; PH 5 (5-8); URINE APPEARANCE Hazy; URINE BACTERIA None Seen /hpf; URINE BILIRUBIN Negative (NEGATIVE); URINE BLOOD Negative (NEGATIVE); URINE COLOR Yellow; URINE GLUCOSE Negative (NEGATIVE); URINE KETONE Negative (NEGATIVE); URINE LEUKOCYTE ESTERASE Trace (NEGATIVE); URINE NITRATE Negative (NEGATIVE); URINE PROTEIN(semi-quant) Negative (NEGATIVE); URINE RBC 0-2 /hpf; URINE UROBILINOGEN Negative (NEGATIVE)
[2020-08-22 01:44] VITALS: BP 115/70; PULSE 78
== END 2020-08-22 01:44 | disposition home or self-care (01) ==
LOC: COL.ER
PROVIDERS: Emergency Medicine
DX: R10.31 Right lower quadrant pain (principal); R56.9 Unspecified convulsions; Z32.02 Encounter for pregnancy test, result negative; Z90.49 Acquired absence of other specified parts of digestive tract; Z90.89 Acquired absence of other organs; Z88.8 Allergy status to other drugs, medicaments and biological substances; Z79.2 Long term (current) use of antibiotics

== ENCOUNTER 2021-03-08 20:12 | Emergency (ER) | payer SELFPAY ==
[~2021-03-08] VITALS: Ht 170.2 cm; Wt 65.9 kg
[2021-03-08 20:14] VITALS: TEMP 97
[2021-03-08 21:35] VITALS: BP 125/77; PULSE 79
== END 2021-03-08 21:35 | disposition home or self-care (01) ==
LOC: COL.ER 20:12
DX: G43.909 Migraine, unspecified, not intractable, without status migrainosus (principal); G40.909 Epilepsy, unspecified, not intractable, without status epilepticus; Z79.899 Other long term (current) drug therapy
CPT/HCPCS: J1200; J2765; J7030

== ENCOUNTER 2022-03-17 08:21 | Emergency (ER) | payer BC ==
[~2022-03-17] VITALS: Ht 162.6 cm; Wt 70.5 kg
[2022-03-17 09:11] VITALS: TEMP 97.9
[2022-03-17 09:24] LABS: COLLECTION METHOD CLEAN CATCH
[2022-03-17 09:38] LABS: PH 7 (5-8); SQUAMOUS EPITHELIAL 0-2 /hpf (0-10); URINE APPEARANCE Clear (CLEAR/HAZY); URINE BACTERIA Rare /hpf (NONE SEEN); URINE BILIRUBIN Negative (NEGATIVE); URINE BLOOD 1+ (NEGATIVE); URINE COLOR Straw (YELLOW); URINE GLUCOSE Negative (NEGATIVE); URINE KETONE Negative (NEGATIVE); URINE LEUKOCYTE ESTERASE Negative (NEGATIVE); URINE NITRATE Negative (NEGATIVE); URINE PROTEIN(semi-quant) Negative (NEGATIVE); URINE RBC 0-2 /hpf (0-2); URINE UROBILINOGEN Negative (NEGATIVE)
[2022-03-17 10:17] LABS: BASO % 0.6 % (0.0-2.0); EOS # 0.1 K/mm3 (0.0-0.7); EOS % 1.9 % (0.0-4.0); GRAN # 3.7 K/mm3 (1.4-6.5); GRAN % 58.8 % (42.2-75.2); HEMATOCRIT 38.2 % (37.0-47.0); LYMPH % 31.5 % (20.0-51.0); MEAN CELL VOLUME 90 fl (80.0-100.0); MEAN CORPUSCULAR HEMOGLOBIN 31 pg (27-31); MEAN CORPUSCULAR HGB CONC 34 g/dl (33.0-37.0); MEAN PLATELET VOLUME 11.8 fl (7.4-10.4); MONO # 0.4 K/mm3 (0.1-0.6); MONO % 6.7 % (1.7-9.3); PLATELET COUNT 225 K/mm3 (130-400); RED BLOOD COUNT 4.26 M/mm3 (4.10-5.30); REDCELL DISTRIBUTION WIDTH-CV 12.4 % (11.5-14.5)
[2022-03-17] MEDS ORDERED: ADDERALL10 MG PO (10:28)
[2022-03-17] MEDS ORDERED: DEPO-PROVER150 MG/M1 IM (10:29)
[2022-03-17] MEDS ORDERED: XYZAL5 MG PO (10:29)
[2022-03-17 10:36] LABS: ALBUMIN 4.1 gm/dL (3.5-5.0); BILIRUBIN,TOTAL 0.4 mg/dL (0.2-1.2); CALCIUM 9.2 mg/dL (8.4-10.2); CREATININE, serum 0.78 mg/dL (0.57-1.11); POTASSIUM 4.1 mmol/L (3.5-4.5); TOTAL PROTEIN 7.2 gm/dL (6.2-8.1)
[2022-03-17 12:00] VITALS: BP 124/74; PULSE 90
== END 2022-03-17 12:11 | disposition home or self-care (01) ==
LOC: COL.ER 08:21
PROVIDERS: Emergency Medicine
DX: R10.84 Generalized abdominal pain (principal); R11.2 Nausea with vomiting, unspecified; Z90.49 Acquired absence of other specified parts of digestive tract; Z32.02 Encounter for pregnancy test, result negative
CPT/HCPCS: J1885; J2765

== ENCOUNTER → 2022-06-04 | Outpatient (CLI) | payer BC ==
[~2022-06-04] MED LIST changes: +ADDERALL10 MG PO; +DEPO-PROVER150 MG/M1 IM; +XYZAL5 MG PO
== END ==
LOC: COL.RAD 07:53
DX: R19.7 Diarrhea, unspecified (principal); K57.90 Diverticulosis of intestine, part unspecified, without perforation or abscess without bleeding; R10.32 Left lower quadrant pain; Z90.49 Acquired absence of other specified parts of digestive tract
CPT/HCPCS: Q9967

== ENCOUNTER → 2024-01-11 | Outpatient (CLI) | payer BC ==
[~2024-01-11] MED LIST changes: +CELEBREX 200MG200 MG PO; +CROLOM 10 ML10 ML OP; +MAXALT10 MG; +NEURONTIN300 MG/CAP PO; +PREDNISONE20 MG PO; +ZENZEDI10 MG PO
== END ==
LOC: COL.RAD 07:32
DX: K58.1 Irritable bowel syndrome with constipation (principal)
CPT/HCPCS: A9541-JZ

== ENCOUNTER → 2024-01-22 | Day surgery (SDC) | payer BC ==
[~2024-01-22] VITALS: Ht 162.6 cm; Wt 77.3 kg
[~2024-01-22] MED LIST changes: +ADDERALL XR30 MG PO; +CORGARD20 MG PO; +GASTROCROM PO; +LR 1,000 ML IV SCH; +Lidocaine PF 2% (20 MG/ML) 5 ML VIAL ONE; +ONFI 10MG PO; +Ondansetron 4 MG/2 ML VIAL IV PRN; +PROAMATINE2.5 MG PO
[2024-01-22 10:15] VITALS: BP 98/67; PULSE 81; TEMP 98.3
[2024-01-22 10:30] VITALS: BP 99/75; PULSE 76; TEMP 98
[2024-01-22 10:45] VITALS: BP 108/69; PULSE 67
--- NOTE | 2024-01-22 12:45 | NUR ---
1015 Pt ambulated from cart to chair with ease 1017 pt tolerating po intake well 1040 MD Sara in room 1050 pt verbalizes discharge education/instructions 1055 pt dressed self with ease 1100 pt escorted out via wheelchair
[2024-01-22 13:00] VITALS: BP 113/79; PULSE 92; TEMP 97.9
== END ==
LOC: SDCO 07:47
PROVIDERS: Internal Medicine Gastroenterology
DX: K29.50 Unspecified chronic gastritis without bleeding (principal); K92.1 Melena; K58.1 Irritable bowel syndrome with constipation; K64.0 First degree hemorrhoids; K21.9 Gastro-esophageal reflux disease without esophagitis; D89.40 Mast cell activation, unspecified; Q79.60 Ehlers-Danlos syndrome, unspecified; G90.A Postural orthostatic tachycardia syndrome [POTS]; Z79.899 Other long term (current) drug therapy
CPT/HCPCS: J2704; J7120

== ENCOUNTER 2024-04-09 19:33 | Emergency (ER) | payer BC ==
[~2024-04-09] VITALS: Ht 162.6 cm; Wt 77.3 kg
[~2024-04-09 19:33] MED LIST changes: -LR 1,000 ML IV SCH; -Lidocaine PF 2% (20 MG/ML) 5 ML VIAL ONE; -Ondansetron 4 MG/2 ML VIAL IV PRN
[2024-04-09 19:38] VITALS: TEMP 98.3
[2024-04-09] MEDS ORDERED: methylPREDNISolone Sod Succ 125 MG/2 ML VIAL IV ONE (20:00)
[2024-04-09] MEDS ORDERED: NS 1,000 ML IV ONE (20:00)
[2024-04-09] MEDS ORDERED: Ondansetron 4 MG/2 ML VIAL IV ONE (20:00)
[2024-04-09] MEDS ORDERED: diphenhydrAMINE 50 MG/ML 1 ML VIAL IV ONE (20:00)
[2024-04-09] MEDS ORDERED: PREDNISONE20 MG PO (21:06)
[2024-04-09] MEDS ORDERED: SYMJEPI0.3 MG/0.3 IJ (21:06)
[2024-04-09 21:23] VITALS: BP 105/57; PULSE 90
== END 2024-04-09 21:24 | disposition home or self-care (01) ==
LOC: COL.ER 19:33
DX: T78.40XA Allergy, unspecified, initial encounter (principal); X58.XXXA Exposure to other specified factors, initial encounter
CPT/HCPCS: J1200; J2405; J2919; J7030

== ENCOUNTER 2024-04-21 08:15 | Outpatient (RCR) | payer BC ==
[~2024-04-21 08:15] MED LIST changes: +SYMJEPI0.3 MG/0.3 IJ
== END 2024-04-27 | disposition home or self-care (01) ==
LOC: WSST
DX: R13.10 Dysphagia, unspecified (principal)